=== PATIENT | female | born 1965 | race Hispanic/Latino ===

== ENCOUNTER 2017-03-22 18:40 | Emergency (ER) | payer OTHER ==
[~2017-03-22] VITALS: Ht 142.2 cm; Wt 63.6 kg
[2017-03-22 18:42] VITALS: BP 152/85; PULSE 59; RESP 20; O2SAT 98
[2017-03-22] MEDS ORDERED: LOSA50TA37 PO (18:51)
--- NOTE | 2017-03-22 19:20 | DRSVH ---
PROCEDURE: X-RAY RIGHT KNEE, THREE VIEWS ([id number]) INDICATIONS: fall at work TECHNIQUE: 3 views of the knee were acquired. COMPARISON: None. FINDINGS: Bones: No fractures or dislocations. No suspicious bony lesions. Soft tissues: There is a small joint effusion. No suspicious soft tissue calcifications. IMPRESSION: 1. No fracture or subluxation. 2. Small joint effusion. Dictated by: Lucas Last M.D. on 03/22/2017 at 19:18 Approved by: Lucas Last M.D. on 03/22/2017 at 19:19
--- NOTE | 2017-03-22 20:16 | ED.REPORT ---
HPI-Extremity Problem Lower Date of Service March 22, 2017 ED Provider: John Small MD Patient is a 52 year old female with a history of hypertension who presents to the ED with right knee pain following an injury that occurred one week ago. Patient reportedly slipped and fell onto her right knee at work. She presents today because the pain has persisted. She is able to ambulate the pain is exacerbated by movement. She denies any current medications besides Losartan for her BP. Patient denies head injury. Nursing Notes Stated Complaint: RT KNEE/LEG PAIN Chief Complaint: Extremity Trauma Nursing Notes Reviewed: Yes Allergies: Coded Allergies: No Known Allergies (Unverified , 03/22/17) Scheduled Losartan Potassium (Losartan Potassium) 50 Mg Tablet 50 MG PO PRN Scheduled PRN Ibuprofen (Ibuprofen) 600 Mg Tablet 600 MG PO QID PRN PRN For Pain General Time Seen by MD: 19:06 Chief Complaint Knee injury right Hx Obtained From: Patient Arrived By: Walk-in Symptom Duration: Since onset Caused by: Accidental Location: : Leg right Quality: Painful Severity: Current: Moderate Severity: Maximum: Moderate Pertinent Negative: Pt denies other symptoms Recent Healthcare: No recent doctor visit, No recent hospitalization Past Medical History Past Medical History Hypertension Past Surgical History None reported Smoking History Unknown if Ever Smoker Social History Other Social History: Good social support, Local resident Ambulatory Status Independent Review of Systems Constitutional: Denies: Chills, Fever Musculoskeletal: Reports: Joint pain (right knee pain ) Neurologic: Denies: Headache Complete sys rev & neg: except as marked. Physical Exam Initial Vital Signs Vital Signs (First) Date Time Temp Pulse Resp B/P Pulse Ox O2 Delivery O2 Flow Rate FiO2 03/22/17 18:42 36.4 59 20 152/85 98 Room Air Initial VS: Reviewed Head / Eyes: Atraumatic, Normocephalic, PERRL Neck: Supple, Non-tender, Full range of motion Upper Extremities: Vascular intact, Neuro intact, No swelling, No tenderness Skin: Warm, Dry, No cyanosis Neurologic: Alert, Oriented, Nonfocal Psychiatric: Mood/affect normal, Behavior normal, Normal thought content Lower Extremity / Pelvis / MS: Atraumatic, Neurologic intact, Vascular intact ( Good PT and DP pulses ), No ligamentous injury Right Knee: Positive: Ecchymosis present, Tenderness present... (Mild), Negative: Erythema present, Warmth present Ankle / Foot: Atraumatic, Neurologic intact, Vascular intact General/Constitutional: Awake, Alert, No acute distress Respiratory / Chest: Atraumatic, No respiratory distress Cardiovascular: Heart rate NL, Regular rhythm, Heart sounds NL, No gallop, No murmurs, No rubs Abdomen: Atraumatic, Soft, Non-tender, BS normoactive, No distention Interpretation & Diagnostics X-Ray Interpretation Xray Interpretation: IMPRESSION: 1. No fracture or subluxation. 2. Small joint effusion. Dictated by: Lucas Last M.D. on 03/22/2017 at 19:18 Re-Eval/Medical Decision Med Decision/Clinical Course Patient is a 52 year old female with a history of hypertension who presents to the ED with right knee pain following an injury that occurred one week ago. Patient reportedly slipped and fell onto her right knee at work. She presents today because the pain has persisted. She is able to ambulate the pain is exacerbated by movement. She denies any current medications besides Losartan for her BP. Patient denies head injury. Plain films negative for fracture. Evaluation reveals no instability of the knee. There is no redness, warmth or evidence of septic arthritis. She has ecchymosis about the anterior knee and I suspect that this is the cause of her pain. She is able to fully range her knee and weight-bear with relative ease. She is advised to take ibuprofen, elevate the affected extremity, apply pressure with Cirilo bandage should use ice packs. Prior to discharge follow-up and return precautions were reviewed in detail with the patient who verbalized understanding and agreement with the plan. The patient was discharged in stable condition. Re-Evaluation/Progress : Time of Eval: 20:21 Patient Status: Condition improved Re-Evaluation/Progress Note: Patient is rechecked. She is informed of her X-ray results and diagnosis. All questions are addressed. She understands and agrees with the intended treatment plan. Counseled Regarding: Diagnosis, Need for follow-up, When/why to return to ED Discharge & Departure Impression: Primary Impression: Knee contusion Encounter type: initial encounter Laterality: right Qualified Code: S80.01XA - Contusion of right knee, initial encounter Additional Impressions: Right knee pain Chronicity: acute Qualified Code: M25.561 - Pain in right knee Fall from ground level Disposition: Home Discharge Condition All VS Reviewed: Yes Condition: Improved Patient Instructions: Contusion in Adults (ED) Additional Instructions: Thank you for seeking care at the emergency room. Our primary goal today in the ED was to evaluate you for any life-threatening conditions. Your evaluation was reassuring and your pain should subside within the next few weeks. Your X-ray was negative for fracture. Take 600 mg of ibuprofen every 6-8 hours as needed for pain. Use ice and heat intermittently for pain and elevate the leg to reduce swelling. You should follow-up with your primary doctor in the next week for a recheck. You should return to the ED immediately if you develop numbness/tingling, worsening pain or weakness or any other concerning signs or symptoms. Thank you for letting us partake in your care today. [employer] [place] por la bsqueda de atencin en la tramaine de emergencias. Nuestro principal objetivo hoy en el ED fue evaluArte para cualquier condicin peligrosa para la vicki. [place] evaluacin era tranquilizadora y palomino dolor debe bajar dentro de las prximas semanas. [place] radiografa fue negativa para la fractura. [place] 600 mg de ibuprofeno cada 6-8 horas segn sea necesario para el dolor. Utilizar hielo y calor intermitentemente para el dolor y elevar la pierna para reducir la hinchazn. Deberas de seguimiento con palomino mdico de atencin primaria en la prxima semana para zina revisin. Usted debe regresar a la ED inmediatamente si desarrolla entumecimiento/ hormigueo, empeoramiento del dolor o debilidad o cualquier otra relativa a signos o sntomas. [place] por dejarnos participar en palomino atencin hoy en da. Referrals: [facility] (PCP) [facility] Scribe Attestation Portions of this note were transcribed by Radames Zuluaga. I, Dr. Small personally performed the history, physical exam and medical decision-making; I reviewed and confirmed the accuracy of the information in the transcribed note. Signed by: Gina Enriquez, 03/22/172026. John Small MD March 22, 2017 20:16 RADAMES ZULUAGA March 22, 2017 20:23
[2017-03-22] MEDS ORDERED: IBUP-1827 PO (20:26)
[2017-03-22 20:33] VITALS: BP 148/80; PULSE 60; RESP 18; O2SAT 99
== END 2017-03-22 20:34 | disposition home or self-care (01) ==
LOC: SED 18:40
DX: S80.01XA Contusion of right knee, initial encounter (principal); W01.0XXA Fall on same level from slipping, tripping and stumbling without subsequent striking against object, initial encounter; Y93.9 Activity, unspecified; Y92.69 Other specified industrial and construction area as the place of occurrence of the external cause; Y99.0 Civilian activity done for income or pay; I10 Essential (primary) hypertension